=== PATIENT | female | born 1965 | race Hispanic/Latino ===

== ENCOUNTER 2017-12-27 07:58 | Inpatient (IN) | payer OTHER ==
[2017-12-25 10:35] VITALS: BP 97/59
[2017-12-25 10:42] LABS: BASOPHILS % (AUTO) 1.2 % (0.0-5.0); EOSINOPHILS % (AUTO) 5.5 % (0.0-8.0); HEMATOCRIT 34.1 % (36-48); LYMPHOCYTES % (AUTO) 32.6 % (21.0-51.0); MEAN CORPUSCULAR HEMOGLOBIN 26.4 pg (27.0-33.0); MEAN CORPUSCULAR HGB CONC 32.1 g/dL (32.0-36.0); MEAN CORPUSCULAR VOLUME 82.1 fL (79-99); MONOCYTES % (AUTO) 9.6 % (3.0-13.0); NEUTROPHILS % (AUTO) 51.1 % (40.0-77.0); PLATELET COUNT (AUTO) 222 K/uL (130-400); RED BLOOD CELL COUNT(AUTO) 4.15 MIL/uL (4.00-5.50); RED CELL DISTRIBUTION WIDTH 17.6 % (11.0-15.5); WHITE BLOOD COUNT (AUTO) 4.8 K/uL (4.8-10.8)
[2017-12-25 10:48] LABS: CREATININE 0.7 mg/dL (0.5-1.5); POTASSIUM 3.8 mmol/L (3.5-5.1)
[2017-12-25 10:59] LABS: PARTIAL THROMBOPLASTIN TIME 27.5 SEC (26.3-35.5); PROTHROMBIN TIME 10.5 SEC (9.6-11.6)
[2017-12-27] VITALS (32 sets, daily range): BP systolic 85–172; BP diastolic 45–89
[~2017-12-27] VITALS: Ht 149.9 cm; Wt 70.1 kg
[~2017-12-27 07:58] MED LIST: ALPR-409 PO; AMIO200T2 PO; APIX5TAB PO; FURO20TA4 PO; LEVO50TA11 PO; LISI-617 PO; METO25TA6 PO; PANT40TA25 PO; SODIUM CHLORIDE 0.9% 500ML 500 ML IV SCH
[2017-12-27] MEDS ORDERED: SODIUM CHLORIDE 0.9% 1000ML 1,000 ML IV ONE (08:17)
[2017-12-27] MEDS ORDERED: DEXAMETHASONE SOD PHOSPHATE 10MG/ML 1ML VIAL ONE (09:24)
[2017-12-27] MEDS ORDERED: SUCCINYLCHOLINE 200MG/10ML SYR ONE (09:24)
[2017-12-27] MEDS ORDERED: ONDANSETRON HCL 4 MG/2 ML VIAL ONE (09:24)
[2017-12-27] MEDS ORDERED: GLYCOPYRROLATE 0.2 MG/ML 5 ML VIAL ONE ×2 (09:24→09:54)
[2017-12-27] MEDS ORDERED: NEOSTIGMINE METHYLSULFATE 1MG/ML IV ONE (09:24)
[2017-12-27] MEDS ORDERED: LIDOCAINE PF 2% 5ML ABBOJECT ONE (09:24)
[2017-12-27] MEDS ORDERED: MIDAZOLAM HCL 1 MG/ML 2ML VIAL ONE (09:26)
[2017-12-27] MEDS ORDERED: PROPOFOL 10 MG/ML 20ML VIAL IV ONE (09:26)
[2017-12-27] MEDS ORDERED: FENTANYL CITRATE PF 50 MCG/1 ML 2ML VIAL ONE ×4 (09:27→13:52)
[2017-12-27] MEDS ORDERED: LIDOCAINE HCL 4% LTA SOL 4 ML VIAL ONE (09:51)
[2017-12-27] MEDS ORDERED: ROCURONIUM BROMIDE 10MG/1ML 5ML VL ONE ×2 (09:53→09:55)
[2017-12-27] MEDS ORDERED: PHENYLEPHRINE HCL 10 MG/ML 1ML VIAL IV ONE ×2 (09:54→11:39)
[2017-12-27] MEDS ORDERED: HEPARIN SODIUM 1000UNIT/ML 10ML VIAL ONE (10:05)
[2017-12-27] MEDS ORDERED: LIDOCAINE HCL 2% 20ML ONE ×2 (11:33→11:41)
[2017-12-27] MEDS ORDERED: ISOPROTERENOL HCL 0.2 MG/ML AMP/VIAL/BAG ONE (12:38)
[2017-12-27] MEDS ORDERED: PROTAMINE SULFATE 10 MG/ML 25ML VIAL IV ONE (15:19)
[2017-12-27] MEDS ORDERED: ACETAMINOPHEN 325 MG TAB PO PRN ×2 (16:15)
[2017-12-27] MEDS ORDERED: ALPRAZOLAM 0.25 MG TABLET PO PRN (16:15)
[2017-12-27] MEDS ORDERED: SUCRALFATE 1 GM/10 ML PO SCH (16:15)
[2017-12-27 17:10] LABS: ABG BASE EXCESS -3.5 mmol/L (-2.0-3.0); ABG HCO3 21.6 mmol/L (21.0-28.0); ABG OXYGEN SATURATION 99.5 % (95.0-99.0); ABG PCO2 40 mmHg (32-45)
[2017-12-27] MEDS ORDERED: IPRATROPIUM/ALBUTEROL SULFATE 3 ML SOLUTION IH ONE (17:38)
[2017-12-27] MEDS: SUCRALFATE 1 GM/10 ML PO SCH (18:00)
[2017-12-27 18:24] LABS: ABG BASE EXCESS -8.1 mmol/L (-2.0-3.0); ABG HCO3 25.1 mmol/L (21.0-28.0); ABG OXYGEN SATURATION 90.2 % (95.0-99.0); ABG PCO2 96 mmHg (32-45)
[2017-12-27] MEDS ORDERED: PROPOFOL 1000 MG/100 ML 100 ML IV ONE (18:38)
[2017-12-27 19:16] LABS: ABG BASE EXCESS -2.5 mmol/L (-2.0-3.0); ABG HCO3 20.7 mmol/L (21.0-28.0); ABG OXYGEN SATURATION 99.5 % (95.0-99.0); ABG PCO2 32 mmHg (32-45)
[2017-12-27] MEDS ORDERED: PROPOFOL 1000 MG/100 ML 100 ML IV PRN (20:15)
[2017-12-27] MEDS ORDERED: PROPOFOL 1000 MG/100 ML IV PRN (22:45)
[2017-12-27] MEDS ORDERED: MIDAZOLAM 100MG-0.9% NS 100ML 100 ML IV PRN (22:45)
[2017-12-27] MEDS ORDERED: FENTANYL 2500MCG+NS 250ML 250 ML IV PRN (22:45)
[2017-12-28] VITALS (24 sets, daily range): BP systolic 85–146; BP diastolic 42–75
[2017-12-28] MEDS: SUCRALFATE 1 GM/10 ML PO SCH ×4 (06:00→17:23)
[2017-12-28] MEDS: LEVOTHYROXINE 50 MCG TABLET PO SCH (06:25)
[2017-12-28 06:48] LABS: ABG BASE EXCESS -2.3 mmol/L (-2.0-3.0); ABG HCO3 18.7 mmol/L (21.0-28.0); ABG OXYGEN SATURATION 98.1 % (95.0-99.0); ABG PCO2 24 mmHg (32-45)
[2017-12-28 09:20] LABS: ABG BASE EXCESS -7.1 mmol/L (-2.0-3.0); ABG HCO3 19.1 mmol/L (21.0-28.0); ABG OXYGEN SATURATION 96.7 % (95.0-99.0); ABG PCO2 41 mmHg (32-45)
[2017-12-28] MEDS ORDERED: SODIUM BICARB 8.4% 50ML SYRINGE IVP SCH (09:30)
[2017-12-28] MEDS ORDERED: SODIUM BICARB 50MEQ 50ML VIAL ONE (09:35)
[2017-12-28] MEDS: AMIODARONE HCL 200 MG TABLET PO SCH (09:37)
[2017-12-28] MEDS: FUROSEMIDE 20 MG TABLET PO SCH (09:37)
[2017-12-28] MEDS: PANTOPRAZOLE SODIUM 40 MG TABLET.DR PO SCH (09:37)
[2017-12-28] MEDS ORDERED: SUCRALFATE 1 GM TABLET ONE (09:40)
[2017-12-28] MEDS ORDERED: SODIUM CHLORIDE 0.9% 1000ML 1,000 ML IV SCH ×4 (12:00→13:30)
[2017-12-28 12:17] LABS: HEMATOCRIT 30.2 % (36-48); MEAN CORPUSCULAR HEMOGLOBIN 26.5 pg (27.0-33.0); MEAN CORPUSCULAR HGB CONC 32.3 g/dL (32.0-36.0); MEAN CORPUSCULAR VOLUME 81.9 fL (79-99); PLATELET COUNT (AUTO) 187 K/uL (130-400); RED BLOOD CELL COUNT(AUTO) 3.69 MIL/uL (4.00-5.50); RED CELL DISTRIBUTION WIDTH 18.3 % (11.0-15.5); WHITE BLOOD COUNT (AUTO) 8.3 K/uL (4.8-10.8)
[2017-12-28] MEDS: LISINOPRIL 2.5 MG TABLET PO SCH (12:28)
[2017-12-28 12:47] LABS: CREATININE 0.8 mg/dL (0.5-1.5); POTASSIUM 4.2 mmol/L (3.5-5.1)
[2017-12-28] MEDS ORDERED: FUROSEMIDE 10 MG/ML 2ML VIAL IV SCH (14:00)
[2017-12-28] MEDS: ALPRAZOLAM 0.5 MG TABLET PO PRN ×2 (15:13→20:34)
[2017-12-28] MEDS: METOPROLOL TARTRATE 25 MG TAB PO SCH (20:34)
[2017-12-29] VITALS (16 sets, daily range): BP systolic 92–146; BP diastolic 40–71
[2017-12-29] MEDS: SUCRALFATE 1 GM/10 ML PO SCH ×4 (00:17→17:07)
[2017-12-29 04:08] LABS: HEMATOCRIT 29.2 % (36-48); MEAN CORPUSCULAR HEMOGLOBIN 26.6 pg (27.0-33.0); MEAN CORPUSCULAR HGB CONC 32.2 g/dL (32.0-36.0); MEAN CORPUSCULAR VOLUME 82.8 fL (79-99); PLATELET COUNT (AUTO) 168 K/uL (130-400); RED BLOOD CELL COUNT(AUTO) 3.53 MIL/uL (4.00-5.50); RED CELL DISTRIBUTION WIDTH 17.9 % (11.0-15.5); WHITE BLOOD COUNT (AUTO) 14.2 K/uL (4.8-10.8)
[2017-12-29 04:41] LABS: POTASSIUM 4.9 mmol/L (3.5-5.1)
[2017-12-29] MEDS: LEVOTHYROXINE 50 MCG TABLET PO SCH (05:32)
[2017-12-29] MEDS: AMIODARONE HCL 200 MG TABLET PO SCH (08:46)
[2017-12-29] MEDS: PANTOPRAZOLE SODIUM 40 MG TABLET.DR PO SCH (08:46)
[2017-12-29] MEDS: FUROSEMIDE 20 MG TABLET PO SCH (08:47)
[2017-12-29] MEDS: METOPROLOL TARTRATE 25 MG TAB PO SCH ×2 (09:00→21:00)
[2017-12-29] MEDS: LISINOPRIL 2.5 MG TABLET PO SCH (12:03)
[2017-12-29] MEDS: ALPRAZOLAM 0.5 MG TABLET PO PRN (18:41)
[2017-12-30] VITALS (7 sets, daily range): BP systolic 96–128; BP diastolic 56–80
[2017-12-30] MEDS: SUCRALFATE 1 GM/10 ML PO SCH ×4 (01:22→17:58)
[2017-12-30] MEDS: LEVOTHYROXINE 50 MCG TABLET PO SCH (06:04)
[2017-12-30] MEDS: FUROSEMIDE 20 MG TABLET PO SCH (08:40)
[2017-12-30] MEDS: METOPROLOL TARTRATE 25 MG TAB PO SCH ×2 (08:40→21:05)
[2017-12-30] MEDS: PANTOPRAZOLE SODIUM 40 MG TABLET.DR PO SCH (08:40)
[2017-12-30] MEDS: AMIODARONE HCL 200 MG TABLET PO SCH (08:40)
[2017-12-30] MEDS ORDERED: GUAIFENESIN-DM 200/20 MG 10 ML PO PRN (12:00)
[2017-12-30] MEDS: LISINOPRIL 2.5 MG TABLET PO SCH (12:15)
[2017-12-30] MEDS: ALPRAZOLAM 0.5 MG TABLET PO PRN ×2 (15:30→16:20)
[2017-12-31 03:52] VITALS: BP 94/63
[2017-12-31] MEDS: SUCRALFATE 1 GM/10 ML PO SCH ×2 (06:25)
[2017-12-31] MEDS: LEVOTHYROXINE 50 MCG TABLET PO SCH (06:25)
[2017-12-31 07:00] VITALS: BP 105/56
[2017-12-31] MEDS: FUROSEMIDE 20 MG TABLET PO SCH (08:48)
[2017-12-31] MEDS: AMIODARONE HCL 200 MG TABLET PO SCH (08:48)
[2017-12-31] MEDS: PANTOPRAZOLE SODIUM 40 MG TABLET.DR PO SCH (08:48)
[2017-12-31] MEDS: METOPROLOL TARTRATE 25 MG TAB PO SCH (08:48)
== END 2017-12-31 11:17 | disposition home or self-care (01) | DRG 273 ==
LOC: DAH 07:58 → DAHIP 07:59 → OBSVTOIN 07:59 → DAH 07:59 → 2BH 21:21 → 2AH 12-29 13:48
PROVIDERS: ADMIT Internal Medicine Cardiovascular Disease; ATTEND Internal Medicine Cardiovascular Disease
PROC: 5A1935Z Respiratory Ventilation, Less than 24 Consecutive Hours (ICD-10-PCS; 2017-12-27)
PROC: 5A09357 Assistance with Respiratory Ventilation, Less than 24 Consecutive Hours, Continuous Positive Airway Pressure (ICD-10-PCS; 2017-12-27)
PROC: 0BH17EZ Insertion of Endotracheal Airway into Trachea, Via Natural or Artificial Opening (ICD-10-PCS; 2017-12-27)
PROC: 5A1935Z Respiratory Ventilation, Less than 24 Consecutive Hours (ICD-10-PCS; 2017-12-27)
PROC: 02K83ZZ Map Conduction Mechanism, Percutaneous Approach (ICD-10-PCS; 2017-12-27)
PROC: 02583ZZ Destruction of Conduction Mechanism, Percutaneous Approach (ICD-10-PCS; principal; 2017-12-27 07:00)
DX: I47.1 Supraventricular tachycardia (principal); J96.90 Respiratory failure, unspecified, unspecified whether with hypoxia or hypercapnia; I11.0 Hypertensive heart disease with heart failure; I50.9 Heart failure, unspecified; I50.22 Chronic systolic (congestive) heart failure; E11.65 Type 2 diabetes mellitus with hyperglycemia; D64.9 Anemia, unspecified; F17.210 Nicotine dependence, cigarettes, uncomplicated; I48.2 Chronic atrial fibrillation; I49.3 Ventricular premature depolarization; J44.9 Chronic obstructive pulmonary disease, unspecified; G47.33 Obstructive sleep apnea (adult) (pediatric); Z79.01 Long term (current) use of anticoagulants; T88.59XA Other complications of anesthesia, initial encounter; Y83.8 Other surgical procedures as the cause of abnormal reaction of the patient, or of later complication, without mention of misadventure at the time of the procedure; Y92.238 Other place in hospital as the place of occurrence of the external cause
CPT/HCPCS: 36415; 36600; 71045; 80048; 82803; 82948; 83880; 84703; 85025; 85027; 85347; 85610; 85730; 87804; 93005; 93306; 93613; 93622; 93623; 93656; 93657; 93662; 94002; 94003; 94640; 94660; A4344; C1730; C1893; C1894; J0330; J1100; J1644; J1940; J2001; J2250; J2370; J2405; J2704; J2710; J2720; J3010; J3490; J7030; J7040

== ENCOUNTER 2018-01-09 16:13 | Inpatient (IN) | payer OTHER ==
[~2018-01-09] VITALS: Ht 149.9 cm; Wt 65.8 kg
[~2018-01-09 16:13] MED LIST changes: -SODIUM CHLORIDE 0.9% 500ML 500 ML IV SCH
[2018-01-09 17:25] LABS: BASOPHILS % (AUTO) 1.6 % (0.0-5.0); EOSINOPHILS % (AUTO) 3.4 % (0.0-8.0); HEMATOCRIT 30.6 % (36-48); LYMPHOCYTES % (AUTO) 25.9 % (21.0-51.0); MEAN CORPUSCULAR HEMOGLOBIN 26.1 pg (27.0-33.0); MEAN CORPUSCULAR HGB CONC 32.2 g/dL (32.0-36.0); MEAN CORPUSCULAR VOLUME 81.3 fL (79-99); MONOCYTES % (AUTO) 8.7 % (3.0-13.0); NEUTROPHILS % (AUTO) 60.4 % (40.0-77.0); PLATELET COUNT (AUTO) 358 K/uL (130-400); RED BLOOD CELL COUNT(AUTO) 3.76 MIL/uL (4.00-5.50); RED CELL DISTRIBUTION WIDTH 17.4 % (11.0-15.5); WHITE BLOOD COUNT (AUTO) 9.1 K/uL (4.8-10.8)
[2018-01-09 17:39] LABS: CREATININE 0.8 mg/dL (0.5-1.5); POTASSIUM 4.2 mmol/L (3.5-5.1)
[2018-01-09 17:40] LABS: INR 1.03 (0.85-1.15); PARTIAL THROMBOPLASTIN TIME 25.9 SEC (26.3-35.5); PROTHROMBIN TIME 10.8 SEC (9.6-11.6)
[2018-01-09 17:43] LABS: ALBUMIN 3.5 g/dL (3.5-5.0); BILIRUBIN,TOTAL 0.5 mg/dL (0.2-1.0); MAGNESIUM 2.2 mg/dL (1.80-2.40); TOTAL PROTEIN, SERUM 8.9 g/dL (6.0-8.3)
[2018-01-09 21:09] VITALS: BP 100/37
[2018-01-09] MEDS ORDERED: FURO20TA6 PO (21:18)
[2018-01-09] MEDS ORDERED: ACETAMINOPHEN 325 MG TAB PO PRN (21:30)
[2018-01-09] MEDS ORDERED: SODIUM CHLORIDE 0.9% 10 ML VIAL IVP PRN (21:30)
[2018-01-09] MEDS ORDERED: ONDANSETRON HCL 4 MG/2 ML VIAL IVP PRN (21:30)
[2018-01-09] MEDS ORDERED: LORAZEPAM 0.5 MG TABLET ONE (23:11)
[2018-01-09] MEDS ORDERED: LORAZEPAM 0.5 MG TABLET PO ONE (23:15)
[2018-01-09] MEDS ORDERED: POTASSIUM CHLORIDE 10% ELIXIR 20 MEQ/15 ML UDCUP PO PRN (23:15)
[2018-01-09] MEDS ORDERED: LIDOCAINE HCL-MPF 1% 2ML VIAL IVP PRN (23:15)
[2018-01-09] MEDS ORDERED: POTASSIUM CHLORIDE 20 MEQ ERTAB PO PRN (23:15)
[2018-01-09] MEDS ORDERED: POTASSIUM CHLORIDE 20MEQ/100ML 100 ML IV PRN (23:15)
[2018-01-09 23:35] VITALS: BP 95/37
[2018-01-10] VITALS (11 sets, daily range): BP systolic 93–187; BP diastolic 49–64
[2018-01-10 04:27] LABS: CREATININE 0.9 mg/dL (0.5-1.5)
[2018-01-10 04:28] LABS: MEAN CORPUSCULAR HEMOGLOBIN 26.6 pg (27.0-33.0); MEAN CORPUSCULAR HGB CONC 32.5 g/dL (32.0-36.0); MEAN CORPUSCULAR VOLUME 81.8 fL (79-99); PLATELET COUNT (AUTO) 249 K/uL (130-400); RED BLOOD CELL COUNT(AUTO) 3.55 MIL/uL (4.00-5.50); RED CELL DISTRIBUTION WIDTH 17.8 % (11.0-15.5); WHITE BLOOD COUNT (AUTO) 6.5 K/uL (4.8-10.8)
[2018-01-10] MEDS: FAMOTIDINE/PF 20 MG/2 ML VIAL IV SCH ×2 (08:53→21:26)
[2018-01-10] MEDS ORDERED: ALPRAZOLAM 0.25 MG TABLET PO PRN (09:15)
[2018-01-10] MEDS: LISINOPRIL 5 MG TABLET PO SCH (12:00)
[2018-01-10] MEDS ORDERED: BUPIVACAINE/PF 0.25% 30ML VIAL IJ ONE (16:05)
[2018-01-10] MEDS ORDERED: ISOVUE-300 100 ML VIAL IV ONE (16:05)
[2018-01-10] MEDS ORDERED: LIDOCAINE HCL 1% MDV 50ML VIAL ONE (16:06)
[2018-01-10] MEDS ORDERED: CEFAZOLIN 1GM / D5W 50ML 50 ML ONE (16:30)
[2018-01-10] MEDS ORDERED: MEPERIDINE-PF 50 MG/ML SYG ONE ×3 (16:30→18:29)
[2018-01-10] MEDS ORDERED: MIDAZOLAM HCL 1 MG/ML 2ML VIAL ONE ×5 (16:30→18:28)
[2018-01-10] MEDS ORDERED: SODIUM CHLORIDE 0.9% 1000ML 1,000 ML IV SCH (19:26)
[2018-01-10] MEDS ORDERED: ACETAMINOPHEN-CODEINE 300/30MG TAB PO PRN ×2 (19:30)
[2018-01-10] MEDS: FUROSEMIDE 20 MG TABLET PO SCH (21:26)
[2018-01-11] VITALS (12 sets, daily range): BP systolic 95–116; BP diastolic 51–78
[2018-01-11 04:48] LABS: CREATININE 0.7 mg/dL (0.5-1.5); POTASSIUM 4.5 mmol/L (3.5-5.1)
[2018-01-11] MEDS: LEVOTHYROXINE 50 MCG TABLET PO SCH (06:28)
[2018-01-11] MEDS: FUROSEMIDE 20 MG TABLET PO SCH ×2 (08:40→21:27)
[2018-01-11] MEDS: FAMOTIDINE/PF 20 MG/2 ML VIAL IV SCH ×2 (08:40→21:27)
[2018-01-11] MEDS ORDERED: AMIODARONE HCL 200 MG TABLET PO SCH (09:00)
[2018-01-11] MEDS ORDERED: LIDOCAINE HCL 2% 20ML ONE (11:51)
[2018-01-11] MEDS: LISINOPRIL 5 MG TABLET PO SCH (12:00)
[2018-01-11] MEDS ORDERED: MIDAZOLAM HCL 1 MG/ML 2ML VIAL ONE ×2 (12:44→12:47)
[2018-01-11] MEDS ORDERED: MEPERIDINE-PF 50 MG/ML SYG ONE (12:44)
[2018-01-11] MEDS: METOPROLOL TARTRATE 25 MG TAB PO SCH (21:26)
[2018-01-12 04:00] VITALS: BP 89/58
[2018-01-12] MEDS: LEVOTHYROXINE 50 MCG TABLET PO SCH (06:42)
[2018-01-12 07:25] VITALS: BP 92/53
[2018-01-12] MEDS: METOPROLOL TARTRATE 25 MG TAB PO SCH ×2 (08:35→20:06)
[2018-01-12] MEDS: FAMOTIDINE/PF 20 MG/2 ML VIAL IV SCH (08:37)
[2018-01-12] MEDS: FUROSEMIDE 20 MG TABLET PO SCH (08:37)
[2018-01-12] MEDS ORDERED: LACTULOSE 20 GM/30 ML UDCUP PO PRN (10:00)
[2018-01-12 11:30] VITALS: BP 92/61
[2018-01-12] MEDS: LISINOPRIL 5 MG TABLET PO SCH (11:42)
[2018-01-12 16:02] VITALS: BP 109/69
[2018-01-12 20:04] VITALS: BP 108/71
== END 2018-01-12 20:15 | disposition home or self-care (01) | DRG 243 ==
LOC: EDH 16:13 → EDHIP 16:45 → OBSVTOIN 16:45 → 2DH 20:46
PROVIDERS: ADMIT Internal Medicine; ATTEND Internal Medicine
PROC: 0JH606Z Insertion of Pacemaker, Dual Chamber into Chest Subcutaneous Tissue and Fascia, Open Approach (ICD-10-PCS; principal; 2018-01-10)
PROC: 02HK3JZ Insertion of Pacemaker Lead into Right Ventricle, Percutaneous Approach (ICD-10-PCS; 2018-01-10)
PROC: 02HL3JZ Insertion of Pacemaker Lead into Left Ventricle, Percutaneous Approach (ICD-10-PCS; 2018-01-10)
PROC: 02583ZZ Destruction of Conduction Mechanism, Percutaneous Approach (ICD-10-PCS; 2018-01-11)
DX: R00.1 Bradycardia, unspecified (principal); I50.32 Chronic diastolic (congestive) heart failure; I11.0 Hypertensive heart disease with heart failure; E78.5 Hyperlipidemia, unspecified; I48.0 Paroxysmal atrial fibrillation; I48.2 Chronic atrial fibrillation; K21.9 Gastro-esophageal reflux disease without esophagitis; Z79.01 Long term (current) use of anticoagulants; Z82.49 Family history of ischemic heart disease and other diseases of the circulatory system; Z95.0 Presence of cardiac pacemaker; Z87.891 Personal history of nicotine dependence; Z88.4 Allergy status to anesthetic agent; Z90.49 Acquired absence of other specified parts of digestive tract; Z88.8 Allergy status to other drugs, medicaments and biological substances
CPT/HCPCS: 33207; 33225; 33227; 36415; 71045; 80048; 80053; 83735; 85025; 85027; 85610; 85730; 93005; 93286; 93308; 93650; 99152; 99153; C1733; C1769; C1894; J0690; J1644; J2175; J2250; J3490; Q9967

== ENCOUNTER → 2018-03-19 | Outpatient (CLI) | payer OTHER ==
[~2018-03-19] MED LIST changes: -AMIO200T2 PO; +AMIO200T5 PO; -FURO20TA4 PO; +FURO20TA6 PO
== END | disposition home or self-care (01) ==
LOC: SHCH 13:17
PROVIDERS: ATTEND Internal Medicine Cardiovascular Disease
DX: I08.1 Rheumatic disorders of both mitral and tricuspid valves (principal); I44.2 Atrioventricular block, complete; I47.2 Ventricular tachycardia
CPT/HCPCS: 93306

== ENCOUNTER → 2019-03-24 | Outpatient (CLI) | payer OTHER ==
[~2019-03-24] MED LIST changes: -ALPR-409 PO; +ALPR0.255 PO; -AMIO200T5 PO; -FURO20TA6 PO; +FURO40TA5 PO; -METO25TA6 PO; +METO50TA18 PO
== END | disposition home or self-care (01) ==
LOC: SHCH 10:58
PROVIDERS: ATTEND Internal Medicine Cardiovascular Disease
DX: I34.0 Nonrheumatic mitral (valve) insufficiency (principal)
CPT/HCPCS: 93306